=== PATIENT | male | born 1955 | race Caucasian/White ===

== ENCOUNTER 2019-08-11 06:07 | Inpatient (IN) | payer OTHER ==
[~2019-08-11] VITALS: Ht 182.9 cm; Wt 109.3 kg
--- NOTE | 2019-08-11 06:15 | NUR ---
PT BIBRA FROM HOME C/O ALTERED MENTAL STATUS +COUGHING OUT BLOOD +JAUNIDICE. PT NON VERBAL AT THIS TIME BUT IS RESPONSIVE TO MECHANICAL STIMULUS, RR EVEN AND UNLABORED ON RA W/ NAD NOTED. PT CONNECTED TO THE WATER ATTENDANT AND POX. AWAITING FOR MD URBANO
--- NOTE | 2019-08-11 06:15 | NUR ---
PT BIBRA FROM HOME C/O ALTERED MENTAL STATUS +COUGHING OUT BLOOD. PT NON VERBAL AT THIS TIME BUT IS RESPONSIVE TO MECHANICAL STIMULUS, RR EVEN AND UNLABORED ON RA W/ NAD NOTED. PT CONNECTED TO THE SPECIAL NEEDS LIBRARIAN AND POX. AWAITING FOR MD URBANO
--- NOTE | 2019-08-11 06:47 | NUR ---
urine, blood, and cultures samples sent to lab for testing.
--- NOTE | 2019-08-11 06:51 | NUR ---
xray at bedside
[2019-08-11 06:56] LABS: BASOPHILS # (AUTO) 0.1 /CMM (0.0-0.2); BASOPHILS % (AUTO) 0.6 % (0.0-2.0); EOSINOPHILS % (AUTO) 2.4 % (0.0-6.0); HEMATOCRIT 42 % (39-51); HEMOGLOBIN 14.1 g/dL (13.5-17.5); LYMPHOCYTES # (AUTO) 0.6 /CMM (0.8-4.8); LYMPHOCYTES % (AUTO) 6.5 % (20.0-44.0); MEAN CORPUSCULAR HGB CONC 33 g/dl (31.0-36.0); MEAN CORPUSCULAR VOLUME 93 fL (80-96); MONOCYTES # (AUTO) 0.7 /CMM (0.1-1.30); MONOCYTES % (AUTO) 7.5 % (2.0-12.0); NEUTROPHILS # (AUTO) 7.2 /CMM (1.8-8.9); PLATELET COUNT (AUTO) 221 /CMM (150-450); RED BLOOD CELL COUNT(AUTO) 4.53 MIL/uL (4.5-6.0); WHITE BLOOD COUNT (AUTO) 8.7 K/uL (4.3-11.0)
--- NOTE | 2019-08-11 06:56 | NUR ---
coronavirus swab sample sent to lab.
[2019-08-11 06:59] LABS: APPEARANCE,URINE CLEAR (CLEAR); BILIRUBIN,URINE NEGATIVE (NEGATIVE); BLOOD, URINE LARGE Ery/uL (NEGATIVE); COLOR,URINE YELLOW (YELLOW); KETONES,URINE NEGATIVE (NEGATIVE); LEUKOCYTE ESTERASE ,URINE NEGATIVE (NEGATIVE); NITRITE, URINE NEGATIVE (NEGATIVE); PH,URINE 7.5 (5.0-8.0); PROTEIN,URINE NEGATIVE (NEGATIVE); UGLUCOSE NEGATIVE (NEGATIVE)
--- NOTE | 2019-08-11 07:02 | NUR ---
[facility] () CONTACT INFORMATION: [phone], REQUESTING TO CALL FOR UPDATE
[2019-08-11 07:03] LABS: CALCIUM, SERUM 8.9 mg/dL (8.5-10.1); CARBON DIOXIDE 15 mmol/L (21-32); CHLORIDE 105 mmol/L (98-107); CREATININE 3.8 mg/dL (0.6-1.3); GLUCOSE 147 mg/dL (74-106); SODIUM SERUM 134 mmol/L (136-145); UREA NITROGEN, BLOOD 39 mg/dL (7-18)
[2019-08-11 07:08] LABS: BACTERIA,URINE Rare /HPF (None Seen); WBC,URINE 0-2 /HPF (0-3)
[2019-08-11 07:09] LABS: SQUAMOUS EPITHELIAL CELL,UR Few /HPF (None Seen)
[2019-08-11 07:09] LABS: ALANINE AMINOTRANSFERASE 34 U/L (12-78); ALBUMIN 2.8 g/dL (3.4-5.0); ALKALINE PHOSPHATASE 449 U/L (46-116); ASPARTATE AMINOTRANSFERASE 49 U/L (15-37); BILIRUBIN,DIRECT 2.1 mg/dL (0.0-0.2); BILIRUBIN,TOTAL 3.5 mg/dL (0.2-1.0); TOTAL PROTEIN, SERUM 9.4 g/dL (6.4-8.2)
[2019-08-11 07:13] LABS: POTASSIUM 6.8 mmol/L (3.5-5.1)
--- NOTE | 2019-08-11 07:13 | NUR ---
REPORT GIVEN TO ZORA SCHMID FOR SHANIA
[2019-08-11] MEDS ORDERED: SODIUM POLYSTYRENE SULFONATE 15 G/60 ML BOTTLE ONE (07:29)
[2019-08-11] MEDS ORDERED: IV NS 0.9% 1,000 ML BAG IV ONE (07:30)
[2019-08-11] MEDS ORDERED: SODIUM POLYSTYRENE SULFONATE 15 G/60 ML BOTTLE PO ONE (07:30)
[2019-08-11] MEDS ORDERED: VANCOMYCIN 1 GM in IV D5W 250 ML IV ONE (07:30)
[2019-08-11] MEDS ORDERED: PIPERACILLIN /TAZOBACTAM 3.375 G in IV D5W 50 ML IV ONE (07:30)
--- NOTE | 2019-08-11 09:00 | NUR ---
PAGED [facility].
--- NOTE | 2019-08-11 09:10 | NUR ---
CALLED NURSING SUP FOR TELE BED.
--- NOTE | 2019-08-11 09:55 | NUR ---
REPORT GIVEN TO ZORA HORTON FOR SHANIA.
[2019-08-11 11:19] VITALS: BP 122/63
[2019-08-11] MEDS ORDERED: IV NS 0.9% 1,000 ML IV PRN (12:14)
--- NOTE | 2019-08-11 12:18 | NUR ---
RN OPENING NOTE RECEIVED PATIENT FROM ER WITH DX SEPSIS AND R/O COVID. PT. IS NONVERBAL, RESPONSIVE TO TACTILE AND PAIN. PT. ON 2L O2 VIA NC, SATURATING WELL AT 95%. PLACED ON TELE MONITOR, HR IS 103, ST NOTED. WRAY CATHETER IN PLACE TO GRAVITY, YELLOW CLEAR URINE NOTED. NG TUBE IN LEFT NOSTRIL. VITAL SIGNS DONE, BODY CHECK DONE, CALLED NAMED ALEJO TO VERIFY CODE STATUS, STILL WANTS DNR/DNI. WANTS TO TRANSFER PATIENT TO [place]. CALLED PAPER LATCHER, LUISA, SHE WILL SPEAK WITH AND WILL REPORT TO DOCTOR THAT PATIENT FAMILY WISHES TO TRANSFER TO [place]. PT. HAS L AND R AC IV, INTACT AND FLUSHED WELL. PLACED A CALL TO DOCTOR DEANGELO FOR ADMITTING ORDER. PT. SAFETY MAINTAINED. WILL CONTINUE TO MONITOR CLOSELY.
[2019-08-11] MEDS ORDERED: Z GUARD REMEDY 2 OZ OINT TP PRN (12:30)
[2019-08-11] MEDS ORDERED: MAGNESIUM HYDROXIDE 30 ML UDC PO PRN (12:30)
[2019-08-11] MEDS ORDERED: ACETAMINOPHEN 325 MG TABLET PO PRN (12:30)
[2019-08-11] MEDS ORDERED: ZOLPIDEM TARTRATE 5 MG TABLET PO PRN (12:30)
[2019-08-11] MEDS ORDERED: HYDROCODONE/APAP 5/325MG 1 EACH TABLET PO PRN (12:30)
[2019-08-11] MEDS ORDERED: FEE PK DOSING 1 MIN EA MC ONE (13:05)
--- NOTE | 2019-08-11 13:26 | NUR ---
SPOKE WITH DEANGELO SALAS AND GAVE CELL NUMBER , WANTS TO TALK TO MD REGARDING CODE STATUS.PER DEANGELO HE WILL CALL THE AND ADDRESS CODE STATUS AFTER HE TALK TO HER.WILL CONTINUE TO FOLLOW UP.
[2019-08-11] MEDS: LACTULOSE 10 G/15 ML UDC (PYXIS) PO SCH ×3 (13:32→23:31)
--- NOTE | 2019-08-11 13:45 | NUR ---
telegraph repeater technician note -------spoke with edna lira about code statu stated that will speak with about dnr \dni also inform that patient wants to go to [place], stated that will speak with will f\u Addendum: 08/11/19 at 1347 by SHIRA GOOD RN started ivf as ordered
--- NOTE | 2019-08-11 13:48 | NUR ---
teletypesetter operator note per per edna lira ok to have dietary and wound consult
[2019-08-11] MEDS: PIPERACILLIN /TAZOBACTAM 2.25 G in IV D5W 50 ML IV SCH ×2 (15:51→23:30)
[2019-08-11 16:00] VITALS: BP 132/68
[2019-08-11] MEDS: Sodium Bicarbonate 150 MEQ in IV D5W 1,000 ML IV PRN (17:21)
--- NOTE | 2019-08-11 17:38 | NUR ---
STEEL PLATE PRINTER NOTE UA COLLECTED ORDERED
--- NOTE | 2019-08-11 18:39 | NUR ---
RN CLOSING NOTE RECEIVED CALL FROM LAB. POTASSIUM 6.4. ORDERED TO RECHECK BMP. WILL FOLLOW UP.
[2019-08-11 20:00] VITALS: BP 110/92
[2019-08-11 20:19] LABS: APPEARANCE,URINE CLEAR (CLEAR); BILIRUBIN,URINE NEGATIVE (NEGATIVE); BLOOD, URINE LARGE Ery/uL (NEGATIVE); COLOR,URINE YELLOW (YELLOW); KETONES,URINE NEGATIVE (NEGATIVE); LEUKOCYTE ESTERASE ,URINE NEGATIVE (NEGATIVE); NITRITE, URINE NEGATIVE (NEGATIVE); PH,URINE 7.5 (5.0-8.0); PROTEIN,URINE TRACE mg/dl (NEGATIVE); UGLUCOSE NEGATIVE (NEGATIVE); UROBILINOGEN,URINE 0.2 EU/dL (0.2)
[2019-08-11 20:25] LABS: BASOPHILS # (AUTO) 0.1 /CMM (0.0-0.2); BASOPHILS % (AUTO) 0.3 % (0.0-2.0); HEMATOCRIT 57 % (39-51); HEMOGLOBIN 17.4 g/dL (13.5-17.5); LYMPHOCYTES # (AUTO) 0.5 /CMM (0.8-4.8); LYMPHOCYTES % (AUTO) 1.7 % (20.0-44.0); MEAN CORPUSCULAR HGB CONC 31 g/dl (31.0-36.0); MEAN CORPUSCULAR VOLUME 100 fL (80-96); MONOCYTES # (AUTO) 2.1 /CMM (0.1-1.30); MONOCYTES % (AUTO) 7.9 % (2.0-12.0); NEUTROPHILS # (AUTO) 23.6 /CMM (1.8-8.9); NEUTROPHILS % (AUTO) 90.1 % (43.0-81.0); PLATELET COUNT (AUTO) 153 /CMM (150-450); RED BLOOD CELL COUNT(AUTO) 5.67 MIL/uL (4.5-6.0); WHITE BLOOD COUNT (AUTO) 26.2 K/uL (4.3-11.0)
[2019-08-11 20:30] LABS: CREATININE, URINE 92.9 MG/DL (30.0-125.0); URINE TOTAL PROTEIN 25.6 mg/dL (0-11.9)
[2019-08-11 20:39] LABS: CALCIUM, SERUM 8.7 mg/dL (8.5-10.1); CREATININE 4.3 mg/dL (0.6-1.3)
[2019-08-11 20:42] LABS: POTASSIUM 7.1 mmol/L (3.5-5.1)
[2019-08-11 20:45] LABS: RBC,URINE 21-50 /HPF (0-2)
[2019-08-11 20:46] LABS: BACTERIA,URINE Rare /HPF (None Seen); SQUAMOUS EPITHELIAL CELL,UR 0-2 /HPF (None Seen)
[2019-08-11 20:47] LABS: EOSINOPHIL,URINE None Seen
[2019-08-11 20:50] LABS: BAND % (MANUAL) 4 % (0.0-5.0); EOSINOPHILS % (MANUAL) 1 % (0-4); LYMPHOCYTES % (MANUAL) 3 % (16-48); MONOCYTES % (MANUAL) 5 % (0-11.0); NEUTROPHILS % (MANUAL) 87 (42-76)
[2019-08-12] VITALS: BP 136/77
[2019-08-12 04:00] VITALS: BP 94/57
[2019-08-12 06:52] LABS: BASOPHILS # (AUTO) 0.1 /CMM (0.0-0.2); BASOPHILS % (AUTO) 0.2 % (0.0-2.0); EOSINOPHILS % (AUTO) 0.1 % (0.0-6.0); HEMATOCRIT 48 % (39-51); HEMOGLOBIN 15.3 g/dL (13.5-17.5); LYMPHOCYTES # (AUTO) 0.9 /CMM (0.8-4.8); LYMPHOCYTES % (AUTO) 3.3 % (20.0-44.0); MEAN CORPUSCULAR HGB CONC 32 g/dl (31.0-36.0); MEAN CORPUSCULAR VOLUME 97 fL (80-96); MONOCYTES # (AUTO) 1.9 /CMM (0.1-1.30); MONOCYTES % (AUTO) 7.5 % (2.0-12.0); NEUTROPHILS # (AUTO) 22.6 /CMM (1.8-8.9); NEUTROPHILS % (AUTO) 88.9 % (43.0-81.0); PLATELET COUNT (AUTO) 214 /CMM (150-450); RED BLOOD CELL COUNT(AUTO) 5.01 MIL/uL (4.5-6.0); WHITE BLOOD COUNT (AUTO) 25.4 K/uL (4.3-11.0)
[2019-08-12] MEDS ORDERED: SODIUM POLYSTYRENE SULFONATE 15 G/60 ML BOTTLE PO ONE (07:30)
[2019-08-12 08:00] VITALS: BP_SYST 104; BP_DIAS 50; BP_DIAS 56
[2019-08-12] MEDS: LACTULOSE 10 G/15 ML UDC (PYXIS) PO SCH ×3 (08:48→19:00)
[2019-08-12] MEDS: PANTOPRAZOLE 40 MG TABLET.DR PO SCH (08:49)
[2019-08-12] MEDS: PIPERACILLIN /TAZOBACTAM 2.25 G in IV D5W 50 ML IV SCH (08:51)
[2019-08-12] MEDS: VANCOMYCIN 500 MG in IV D5W 100 ML IV SCH (08:51)
[2019-08-12] MEDS: Sodium Bicarbonate 150 MEQ in IV D5W 1,000 ML IV PRN ×2 (08:52→22:22)
--- NOTE | 2019-08-12 11:00 | NUR ---
Anam GUERRIER was notified re; potassum level was 7.4
[2019-08-12 11:02] LABS: ALBUMIN 2.1 g/dL (3.4-5.0); BILIRUBIN,TOTAL 2.6 mg/dL (0.2-1.0); CALCIUM, SERUM 8.6 mg/dL (8.5-10.1); MAGNESIUM 2.1 mg/dL (1.8-2.4); PHOSPHORUS 5.9 mg/dL (2.5-4.9); THYROID STIMULATING HORMONE 4.754 uIU/mL (0.358-3.74); TOTAL PROTEIN, SERUM 7.3 g/dL (6.4-8.2)
[2019-08-12 11:04] LABS: C-REACTIVE PROTEIN 7.7 mg/dL (0.0-0.9)
[2019-08-12 11:05] LABS: POTASSIUM 7.4 mmol/L (3.5-5.1)
--- NOTE | 2019-08-12 11:12 | NUR ---
WOUND CARE CONSULT: REVIEWED CHART, PHOTO DOCUMENTATION AND NURSING DOCUMENTATION. PER PHOTO DOCUMENTATION THERE ARE MULTIPLE AREAS OF SKIN DISCOLORATION AND BRUISES PRESENT ON ADMISSION. CURRENT HELEN SCORE IS 10. LOW AIRLOSS BED TO BE PLACED WHEN AVAILABLE. DISCUSSED SKIN PROTECTION WITH NURSING STAFF. MD IN AGREEMENT WITH PLAN OF CARE.
[2019-08-12] MEDS ORDERED: DEXTROSE 50%-WATER 50 ML DISP.SYRIN IVP STA (12:25)
[2019-08-12] MEDS ORDERED: Calcium Gluconate 1GM/10ML 4.65 MEQ in IV NS 0.9% 100 ML IV ONE (12:30)
[2019-08-12] MEDS ORDERED: DEXTROSE 50%-WATER 50 ML DISP.SYRIN IV PRN (12:30)
[2019-08-12] MEDS ORDERED: INSULIN REGULAR, HUMAN 100 UNIT/ML 10 ML VIAL IV ONE (12:30)
--- NOTE | 2019-08-12 12:30 | NUR ---
all medication given as ordered
[2019-08-12 12:31] LABS: D-DIMER 15.21 mg/L(FEU (0.17-0.50)
[2019-08-12] MEDS: INSULIN REGULAR, HUMAN 100 UNIT/ML 3 ML VIAL SQ PRN (13:19)
[2019-08-12 16:00] VITALS: BP_SYST 104; BP_SYST 114; BP_DIAS 50; BP_DIAS 67
[2019-08-12 16:29] LABS: CALCIUM, SERUM 8.7 mg/dL (8.5-10.1); CREATININE 5.6 mg/dL (0.6-1.3); POTASSIUM 5.1 mmol/L (3.5-5.1)
--- NOTE | 2019-08-12 16:55 | NUR ---
potassum was 5.1 [id number]. co2 15 bun 48 creatine 56 left message to [facility] #[phone] waiting for returning call back
[2019-08-12] MEDS: BLOOD SUGAR DIAGNOSTIC 1 EACH STRIP IN SCH (17:46)
[2019-08-12] MEDS: MEROPENEM 500 MG in IV NS 0.9% 50 ML IV SCH (18:43)
--- NOTE | 2019-08-12 19:42 | NUR ---
Handoff with night team, ZORA Doty. Troy Schreiber RN
[2019-08-12 20:00] VITALS: BP 105/61
[2019-08-12] MEDS: ONDANSETRON HCL/PF 4 MG/2 ML VIAL IVP PRN (22:22)
[2019-08-13] VITALS: BP 113/66
[2019-08-13] MEDS: BLOOD SUGAR DIAGNOSTIC 1 EACH STRIP IN SCH ×4 (00:20→18:10)
[2019-08-13] MEDS: INSULIN REGULAR, HUMAN 100 UNIT/ML 3 ML VIAL SQ PRN (00:21)
[2019-08-13] MEDS: LACTULOSE 10 G/15 ML UDC (PYXIS) PO SCH ×4 (01:34→19:00)
[2019-08-13 04:00] VITALS: BP 140/71
[2019-08-13 06:49] LABS: BASOPHILS # (AUTO) 0.1 /CMM (0.0-0.2); BASOPHILS % (AUTO) 0.5 % (0.0-2.0); EOSINOPHILS % (AUTO) 3.4 % (0.0-6.0); HEMATOCRIT 39 % (39-51); HEMOGLOBIN 12.8 g/dL (13.5-17.5); LYMPHOCYTES # (AUTO) 0.7 /CMM (0.8-4.8); LYMPHOCYTES % (AUTO) 6.1 % (20.0-44.0); MEAN CORPUSCULAR HGB CONC 33 g/dl (31.0-36.0); MEAN CORPUSCULAR VOLUME 93 fL (80-96); MONOCYTES # (AUTO) 1.5 /CMM (0.1-1.30); MONOCYTES % (AUTO) 12.6 % (2.0-12.0); NEUTROPHILS # (AUTO) 9.1 /CMM (1.8-8.9); NEUTROPHILS % (AUTO) 77.4 % (43.0-81.0); PLATELET COUNT (AUTO) 125 /CMM (150-450); RED BLOOD CELL COUNT(AUTO) 4.18 MIL/uL (4.5-6.0); WHITE BLOOD COUNT (AUTO) 11.8 K/uL (4.3-11.0)
[2019-08-13 07:46] LABS: ALBUMIN 1.9 g/dL (3.4-5.0); BILIRUBIN,TOTAL 2.4 mg/dL (0.2-1.0); CALCIUM, SERUM 8.2 mg/dL (8.5-10.1); CREATININE 4.8 mg/dL (0.6-1.3); MAGNESIUM 1.8 mg/dL (1.8-2.4); PHOSPHORUS 5.2 mg/dL (2.5-4.9); POTASSIUM 4.1 mmol/L (3.5-5.1); TOTAL PROTEIN, SERUM 6.4 g/dL (6.4-8.2)
[2019-08-13 08:00] VITALS: BP 115/62
[2019-08-13] MEDS: PANTOPRAZOLE 40 MG TABLET.DR PO SCH (08:47)
[2019-08-13] MEDS: VANCOMYCIN 500 MG in IV D5W 100 ML IV SCH (08:48)
[2019-08-13] MEDS: MEROPENEM 500 MG in IV NS 0.9% 50 ML IV SCH (10:00)
[2019-08-13] MEDS: ALBUMIN 25% 25 GM in PREMIX 1 EA IV SCH ×2 (10:00→16:12)
[2019-08-13] MEDS: MIDODRINE HCL (5MG) 5 MG TABLET PO SCH ×3 (10:01→16:14)
[2019-08-13] MEDS: OCTREOTIDE 50 MCG/ML AMPUL SQ SCH ×3 (10:07→16:15)
[2019-08-13 12:00] VITALS: BP 110/68
[2019-08-13] MEDS ORDERED: VANCOMYCIN POST DIALYSIS 500MG IV PRN ×2 (12:30)
[2019-08-13] MEDS: ONDANSETRON HCL/PF 4 MG/2 ML VIAL IVP PRN (12:33)
[2019-08-13 16:00] VITALS: BP 139/64
[2019-08-13 16:14] VITALS: BP 110/68
--- NOTE | 2019-08-13 18:00 | NUR ---
ELIGIBILITY SUPERVISOR CLOSING NOTES PATIENT IS RESTING IN BED. A&O X2. VS STABLE WITH NO ACUTE DISTRESS. BREATHING EVEN AND UNLABORED ON 2 L NC WITH NO RESPIRATORY DISTRESS. PATIENT LUIS ANTONIO PAIN; NO SIGN OR SYMPTOMS OF PAIN ARE PRESENT. IV 20 GALILEA ON RIGHT HAND, CLEANED, FLUSHING WELL, AND PATENT. SAFETY MEASURES IN PLACE. SIDE RAILS UP X 2, BED LOCKED IN THE LOWEST POSITION. PATIENT WILL BE TRANSFERRED TO [facility] AT 20:00 HRS. REPORT WAS GIVEN TO TRUDI AT [facility] AT [phone]. ALL NEEDS ARE RENDERED AT THIS TIME. WILL ENDORSE THE INCOMING NURSE FOR THE CONTINUITY OF CARE.
--- NOTE | 2019-08-13 18:30 | NUR ---
CRITICAL VALUE REPORT LACTIC ACID CRITICAL CARE OF 3.7 REPORTED TO THE CHARGE ( SOON), WHICH VERBALIZED " WOULD MONITOR AND MAKE THE APPROPRIATE REPORT TO MD."
--- NOTE | 2019-08-13 19:00 | NUR ---
RN OPENING NOTES: Received pt resting in bed, A&Ox1-2. On tele monitor showing SR. On 2L/min NC tolerating well. No respiratory distress or SOB noted. Has right nostril NGT. Patent and flushed, NPO at this time. Has IV site on RH #20 patent and flushing. Dressing c/d/i. Has right femoral cath. Machado cath in place, patent and draining yellow urine via gravity. Pt to be picked up and transferred to [facility] at 2000. Will call [facility] for report. Safety measures in place. Will continue to monitor.
--- NOTE | 2019-08-13 20:31 | NUR ---
RN NOTES: 1946: Transport here to fruit picker patient and transfer to [facility]. Report given to [place]. Pt cleaned, pictures taken, and ready for D/C. 2009: Pt left facility in stable condition. 2019: Called [facility] and gave report to ZORA Olvera.
== END 2019-08-13 22:00 | disposition short-term general hospital (02) | DRG 871 ==
LOC: ER 06:09 → TELE1 10:04 → TELE-TD 12:24 → TELE1 08-12 07:48
PROVIDERS: ADMIT Hospitalist; ATTEND Internal Medicine
PROC: 5A1D70Z Performance of Urinary Filtration, Intermittent, Less than 6 Hours Per Day (ICD-10-PCS; principal; 2019-08-12)
PROC: 06HY33Z Insertion of Infusion Device into Lower Vein, Percutaneous Approach (ICD-10-PCS; principal; 2019-08-12)
DX: A41.9 Sepsis, unspecified organism (principal); G93.41 Metabolic encephalopathy; J18.9 Pneumonia, unspecified organism; N17.0 Acute kidney failure with tubular necrosis; E44.0 Moderate protein-calorie malnutrition; E87.1 Hypo-osmolality and hyponatremia; E87.2 Acidosis; D69.59 Other secondary thrombocytopenia; E87.5 Hyperkalemia; I12.9 Hypertensive chronic kidney disease with stage 1 through stage 4 chronic kidney disease, or unspecified chronic kidney disease; N18.3 Chronic kidney disease, stage 3 (moderate); Z66 Do not resuscitate; K74.60 Unspecified cirrhosis of liver; K80.20 Calculus of gallbladder without cholecystitis without obstruction; M81.0 Age-related osteoporosis without current pathological fracture; I87.2 Venous insufficiency (chronic) (peripheral); L40.9 Psoriasis, unspecified; E03.9 Hypothyroidism, unspecified; Z87.891 Personal history of nicotine dependence; Z68.32 Body mass index [BMI] 32.0-32.9, adult; E80.6 Other disorders of bilirubin metabolism; K72.90 Hepatic failure, unspecified without coma; R13.10 Dysphagia, unspecified; D72.829 Elevated white blood cell count, unspecified; K21.9 Gastro-esophageal reflux disease without esophagitis
CPT/HCPCS: 36415; 71045-TC; 76705-TC; 76770-TC; 80048-TC; 80053-TC; 80061-TC; 80076-TC; 80202-TC; 81000-TC; 82140-TC; 82570-TC; 82728-TC; 82962-TC; 83605-TC; 83615-TC; 83735-TC; 84100-TC; 84155-TC; 84300-TC; 84439-TC; 84443-TC; 84484-TC; 85025-TC; 85378-TC; 85385-TC; 85730-TC; 86140-TC; 86706; 87040-TC; 87081-TC; 87086-TC; 87340; 90935-TC; A4216; A6403; C1750; G0378; J0610; J1815; J2185; J2354; J2405; J2543; J3370; J7030; J7040; J7050; J7060; J7070; P9047